=== PATIENT | female | born 1960 | race African-American/Black ===

== ENCOUNTER 2016-11-28 11:45 | Emergency (ER) | payer OTHER ==
[~2016-11-28] VITALS: Ht 160 cm; Wt 106.0 kg
[~2016-11-28 11:45] MED LIST: ALL DAY ALLERGY10 MG PO; AUGMENTIN875 MG PO; AZITHROMYCIN250 MG PO; BENADRYL25 MG PO; BENTYL10 MG PO; BENTYL20 MG PO; BUTALB-APAP-CA1 EAC1 PO; CELEXA10 MG PO; CELEXA20 MG PO; Ecotrin PO; FLONASE16 G1 BOTH NARES; FOSINOPRIL SODI20 MG PO; GENTLELAX119 GM PO; HYDROCHLOROTHIA25 MG PO; HYDROCODON-ACE1 EAC5 PO; HYDROCODON-ACE1 EAC7 PO; HYDROCODON-ACE1 EAC8 PO; IMITREX100 MG PO; KEFLEX500 MG PO; METAMUCIL PACKE1 PKT PO; METFORMIN HCL500 M1 PO; METFORMIN HCL500 M4 PO; METHIMAZOLE10 MG PO; MONOPRIL20 MG PO; MUCUS ER600 MG PO; NAPROSYN500 MG PO; NEURONTIN100 MG PO; NORCO 5/3251 TABLET PO; OMEPRAZOLE20 MG PO; PEPCID40 MG PO; PRILOSEC20 MG PO; PRINIVIL20 MG PO; PYRIDIUM200 MG PO; REGLAN10 MG PO; ROBITUSSIN NIG118 ML PO; TESSALON PERLE100 MG PO; TORADOL10 MG PO; TRAMADOL HCL50 MG PO; TYLENOL WITH C1 EACH PO; VALIUM2 MG PO; VENTOLIN HFA18 GM IH; VICODIN; VICODIN,LORT1 TABLET PO; ZITHROMAX250 MG PO; ZOFRAN ODT4 MG PO; ZOFRAN4 MG PO; ZOFRAN8 MG PO
[2016-11-28] MEDS ORDERED: TESSALON PERLE100 MG PO (12:41)
[2016-11-28] MEDS ORDERED: MUCUS ER600 MG PO (12:41)
[2016-11-28] MEDS ORDERED: ROBITUSSIN NIG118 ML PO (12:41)
[2016-11-28] MEDS ORDERED: FLONASE16 G1 BOTH NARES (12:41)
[2016-11-28 12:48] VITALS: BP 164/99
== END 2016-11-28 13:01 | disposition home or self-care (01) ==
LOC: EME 11:45
DX: J06.9 Acute upper respiratory infection, unspecified (principal)
CPT/HCPCS: 99281; 99284

== ENCOUNTER 2017-01-21 13:46 | Day surgery (SDC) | payer OTHER ==
[~2017-01-21] VITALS: Ht 158.8 cm; Wt 106.6 kg
[~2017-01-21 13:46] MED LIST changes: +ANTIBOTIC PO; +GRALISE300 MG PO; +KENALOG,ARISTOC80 GM TP; +NEURONTIN300 MG PO; +NYSTATIN100000 UN1 TP; +SINEQUAN10 MG PO; +[UNRECOGNIZED DRUG - OTHER] PO
[2017-01-21 14:28] LABS: POINT-OF-CARE METER ID UU14174212
== END 2017-01-21 15:10 | disposition home or self-care (01) ==
LOC: PAIN 13:46
PROVIDERS: Anesthesiology Pain Medicine
DX: M47.16 Other spondylosis with myelopathy, lumbar region (principal); M51.06 Intervertebral disc disorders with myelopathy, lumbar region; M79.7 Fibromyalgia; M17.10 Unilateral primary osteoarthritis, unspecified knee; E11.40 Type 2 diabetes mellitus with diabetic neuropathy, unspecified; I10 Essential (primary) hypertension; F32.9 Major depressive disorder, single episode, unspecified; G47.33 Obstructive sleep apnea (adult) (pediatric); E03.9 Hypothyroidism, unspecified; K21.9 Gastro-esophageal reflux disease without esophagitis; N26.1 Atrophy of kidney (terminal); E66.01 Morbid (severe) obesity due to excess calories; Z68.41 Body mass index [BMI] 40.0-44.9, adult; Z87.891 Personal history of nicotine dependence; F10.21 Alcohol dependence, in remission; Z79.891 Long term (current) use of opiate analgesic; Z79.84 Long term (current) use of oral hypoglycemic drugs; Z79.899 Other long term (current) drug therapy
CPT/HCPCS: 82948; J1030; J2250; J3010; S0020

== ENCOUNTER 2017-02-15 11:40 | Emergency (ER) | payer OTHER ==
[~2017-02-15] VITALS: Ht 157.5 cm; Wt 107.3 kg
[2017-02-15] MEDS ORDERED: COLCHICINE0.6 M1 PO (12:17)
[2017-02-15 12:34] VITALS: BP 136/100
== END 2017-02-15 12:36 | disposition home or self-care (01) ==
LOC: EME 11:40
DX: M10.9 Gout, unspecified (principal); Z91.018 Allergy to other foods; Z88.6 Allergy status to analgesic agent; Z88.5 Allergy status to narcotic agent; Z91.012 Allergy to eggs; Z87.891 Personal history of nicotine dependence; Z82.69 Family history of other diseases of the musculoskeletal system and connective tissue; I10 Essential (primary) hypertension; E11.9 Type 2 diabetes mellitus without complications; Z79.84 Long term (current) use of oral hypoglycemic drugs
CPT/HCPCS: 99281; 99283

== ENCOUNTER 2017-02-28 10:47 | Emergency (ER) | payer OTHER ==
[~2017-02-28] VITALS: Ht 157.5 cm; Wt 106.2 kg
[~2017-02-28 10:47] MED LIST changes: +COLCHICINE0.6 M1 PO
[2017-02-28 11:41] LABS: ADD MIUA? YES; BILIRUBIN NEGATIVE; BLOOD NEGATIVE; COLOR YELLOW ((YELLOW)); GLUCOSE (STRIP) 50; KETONES NEGATIVE; LEUKOCYTES SMALL; NITRITE NEGATIVE; PROTEIN (STRIP) 100; SPECIFIC GRAVITY 1.023 (1.000-1.030); UROBILINOGEN 0.2 MG/DL (0.2-1.0)
[2017-02-28 11:43] LABS: BACTERIA RARE /HPF; EPITHELIAL CELLS 1+ /HPF; MUCUS TRACE /LPF; RED BLOOD CELLS 0-5 /HPF (0-5); WHITE BLOOD CELLS 0-5 /HPF (0-5)
[2017-02-28 11:52] LABS: EOSINOPHIL (%) 0.6 % (0-5); HEMATOCRIT 42.1 % (36.0-46.0); IMMATURE GRANULOCYTE (%) 0.2 % (0.0-0.7); INSTRUMENT ABS NEUTROPHIL CT 1.4 K/uL; LYMPHOCYTE COUNT 2.8 K/uL (1.0-2.8); MCH 28.2 PG (29.0-34.0); MCHC 32.3 G/DL (30.0-36.0); MCV 87.3 FL (83-99); MEAN PLAT.VOLUME 11.7 uM^3 (9.5-12.4); MONOCYTE (%) 8.2 % (3-12); MONOCYTE COUNT 0.4 K/uL (0-0.8); NEUTROPHIL COUNT 1.4 K/uL (1.8-6.4); PLATELET COUNT 225 K/uL (156-360); RBC DIS.WIDTH-CV 14.9 % (11.8-14.6); RBC DIS.WIDTH-SD 47.7 % (39-53); RED BLOOD COUNT 4.82 M/uL (3.80-5.20); WHITE BLOOD COUNT 4.6 K/uL (4.1-10.2)
[2017-02-28 12:06] LABS: CHLORIDE 103 mEq/L (99-109); POTASSIUM 3.7 mEq/L (3.7-5.4); SODIUM 140 mEq/L (136-147)
[2017-02-28 12:08] LABS: GLUCOSE 95 mg/dL (70-99)
[2017-02-28 12:09] LABS: ANION GAP 10 MEQ/L (2-14)
[2017-02-28 12:10] LABS: TOTAL BILIRUBIN 0.4 mg/dL (0.0-1.0)
[2017-02-28 12:12] LABS: ALKALINE PHOSPHATASE 72 IU/L (3-129); GFR ESTIMATE (CALCULATED) > 59 mL/min/
[2017-02-28 12:13] LABS: UREA NITROGEN (BUN) 15 mg/dL (9-23)
[2017-02-28] MEDS ORDERED: NORCO 5/3251 TABLET PO (14:01)
[2017-02-28 14:11] VITALS: BP 130/86
== END 2017-02-28 14:14 | disposition home or self-care (01) ==
LOC: EME 10:47
PROVIDERS: Physician Assistant
DX: R10.30 Lower abdominal pain, unspecified (principal); R11.0 Nausea; N89.8 Other specified noninflammatory disorders of vagina; R19.7 Diarrhea, unspecified; I10 Essential (primary) hypertension; E11.9 Type 2 diabetes mellitus without complications; Z79.84 Long term (current) use of oral hypoglycemic drugs; Z87.442 Personal history of urinary calculi; Z87.891 Personal history of nicotine dependence
CPT/HCPCS: 74176; 80053; 81003; 85025; 99281; 99284; J2270

== ENCOUNTER → 2017-03-20 | Outpatient (CLI) | payer OTHER | END | disposition home or self-care (01) | LOC: NUC 03-13 11:00 | DX: R10.814 Left lower quadrant abdominal tenderness (principal); N26.1 Atrophy of kidney (terminal); N28.89 Other specified disorders of kidney and ureter | CPT/HCPCS: 78709; A9562 ==

== ENCOUNTER → 2017-04-04 | Day surgery (SDC) | payer OTHER ==
[~2017-04-04] VITALS: Ht 160 cm; Wt 107.5 kg
[2017-04-04 10:30] LABS: POINT-OF-CARE METER ID UU13113696
[2017-04-04 12:25] LABS: BASE EXCESS 2.6 mEq/L (-3 to +3); BICARBONATE 29.7 mEq/L (22-26); CARBOXY HGB 2.6 % (0-5); METHEMOGLOBIN 1.8 % (0-1.5); PCO2 55 mm Hg (35-45); pH 7.34 (7.35-7.45)
[2017-04-04 12:27] LABS: PO2 34 mm Hg (80-100); SITE PA
[2017-04-04 12:28] LABS: COMMENTS - BLOOD GASES COLLECTED BY CATHLAB
[2017-04-04 12:28] LABS: BASE EXCESS 2.2 mEq/L (-3 to +3); BICARBONATE 29.5 mEq/L (22-26); CARBOXY HGB 2.7 % (0-5); METHEMOGLOBIN 1.7 % (0-1.5); PCO2 56 mm Hg (35-45); pH 7.33 (7.35-7.45)
[2017-04-04 12:29] LABS: COMMENTS - BLOOD GASES COLLECTED BY CATHLAB; PO2 35 mm Hg (80-100); SITE RA
[2017-04-04 13:22] LABS: POINT-OF-CARE METER ID UU13113819
== END | disposition home or self-care (01) ==
LOC: CATH 09:16
PROVIDERS: Internal Medicine Cardiovascular Disease
DX: I27.2 Other secondary pulmonary hypertension (principal); R06.09 Other forms of dyspnea; E11.9 Type 2 diabetes mellitus without complications; G47.30 Sleep apnea, unspecified; I10 Essential (primary) hypertension; E66.01 Morbid (severe) obesity due to excess calories; Z87.891 Personal history of nicotine dependence
CPT/HCPCS: 36600; 82803; 82948; C1769; C1894; J1815; J2250; J3010

== ENCOUNTER 2017-04-05 19:53 | Emergency (ER) | payer OTHER ==
[~2017-04-05] VITALS: Ht 160 cm; Wt 106.1 kg
[2017-04-05 20:42] LABS: POINT-OF-CARE METER ID UU14100415
[2017-04-05 20:56] LABS: HEMATOCRIT 41.5 % (36.0-46.0); MCH 28.5 PG (29.0-34.0); MCV 86.5 FL (83-99); RBC DIS.WIDTH-SD 47.7 % (39-53)
[2017-04-05 21:05] LABS: CHLORIDE 105 mEq/L (99-109); POTASSIUM 4.1 mEq/L (3.7-5.4); SODIUM 140 mEq/L (136-147)
[2017-04-05 21:07] LABS: GLUCOSE 117 mg/dL (70-99)
[2017-04-05 21:08] LABS: ANION GAP 13 MEQ/L (2-14)
[2017-04-05 21:09] LABS: ADD MIUA? YES; BILIRUBIN NEGATIVE; BLOOD SMALL; COLOR YELLOW ((YELLOW)); GLUCOSE (STRIP) NEGATIVE; KETONES NEGATIVE; LEUKOCYTES MODERATE; NITRITE NEGATIVE; PROTEIN (STRIP) 30; SPECIFIC GRAVITY 1.016 (1.000-1.030); UROBILINOGEN 0.2 MG/DL (0.2-1.0)
[2017-04-05 21:09] LABS: TOTAL BILIRUBIN 0.2 mg/dL (0.0-1.0)
[2017-04-05 21:10] LABS: ALKALINE PHOSPHATASE 82 IU/L (3-129)
[2017-04-05 21:11] LABS: GFR ESTIMATE (CALCULATED) > 59 mL/min/
[2017-04-05 21:12] LABS: UREA NITROGEN (BUN) 14 mg/dL (9-23)
[2017-04-05 21:15] LABS: BACTERIA 1+ /HPF; EPITHELIAL CELLS 2+ /HPF; MUCUS TRACE /LPF; RED BLOOD CELLS 0-5 /HPF (0-5); UCUL ADDED? NO
[2017-04-05 21:20] LABS: QUANTITATIVE HCG < 4.0 MIU/ML
[2017-04-05 21:41] LABS: PLAT.SUFFICIENCY ADEQUATE; PLATELET COUNT 222 K/uL (156-360)
[2017-04-05] MEDS ORDERED: KEFLEX500 MG PO (21:44)
[2017-04-05 21:58] VITALS: BP 146/97
== END 2017-04-05 21:59 | disposition home or self-care (01) ==
LOC: EME 19:53
PROVIDERS: Physician Assistant
DX: N39.0 Urinary tract infection, site not specified (principal); R10.30 Lower abdominal pain, unspecified; Z98.890 Other specified postprocedural states; K57.30 Diverticulosis of large intestine without perforation or abscess without bleeding; I12.9 Hypertensive chronic kidney disease with stage 1 through stage 4 chronic kidney disease, or unspecified chronic kidney disease; E11.22 Type 2 diabetes mellitus with diabetic chronic kidney disease; N18.9 Chronic kidney disease, unspecified; Z79.84 Long term (current) use of oral hypoglycemic drugs; E03.9 Hypothyroidism, unspecified; Z87.442 Personal history of urinary calculi; Z87.891 Personal history of nicotine dependence
CPT/HCPCS: 74176; 80053; 81003; 82948; 84702; 85027; 99281; 99282

== ENCOUNTER 2017-06-09 15:55 | Emergency (ER) | payer OTHER ==
[~2017-06-09] VITALS: Ht 160 cm; Wt 105.7 kg
[2017-06-09] MEDS ORDERED: TORADOL10 MG PO (18:16)
[2017-06-09 18:50] VITALS: BP 156/95
== END 2017-06-09 18:56 | disposition home or self-care (01) ==
LOC: EME 15:55
DX: S06.0X0A Concussion without loss of consciousness, initial encounter (principal); W22.09XA Striking against other stationary object, initial encounter; I12.9 Hypertensive chronic kidney disease with stage 1 through stage 4 chronic kidney disease, or unspecified chronic kidney disease; N18.9 Chronic kidney disease, unspecified; Z79.84 Long term (current) use of oral hypoglycemic drugs; Z87.891 Personal history of nicotine dependence
CPT/HCPCS: 99281; 99283

== ENCOUNTER 2017-06-30 10:47 | Day surgery (SDC) | payer OTHER ==
[2017-06-30 11:52] LABS: POINT-OF-CARE METER ID UU14174212; POINT-OF-CARE USER ID AHSRSCSLC11
== END 2017-06-30 12:45 | disposition home or self-care (01) ==
LOC: PAIN 10:47 → SDC 11:15 → PAIN 11:15
PROVIDERS: Anesthesiology Pain Medicine
DX: M16.0 Bilateral primary osteoarthritis of hip (principal); M79.7 Fibromyalgia; M47.16 Other spondylosis with myelopathy, lumbar region; E11.42 Type 2 diabetes mellitus with diabetic polyneuropathy; K21.9 Gastro-esophageal reflux disease without esophagitis; E05.20 Thyrotoxicosis with toxic multinodular goiter without thyrotoxic crisis or storm; M10.9 Gout, unspecified; G40.909 Epilepsy, unspecified, not intractable, without status epilepticus; I10 Essential (primary) hypertension; E05.90 Thyrotoxicosis, unspecified without thyrotoxic crisis or storm; E66.01 Morbid (severe) obesity due to excess calories; G47.33 Obstructive sleep apnea (adult) (pediatric); Z87.891 Personal history of nicotine dependence; M47.14 Other spondylosis with myelopathy, thoracic region; Z79.891 Long term (current) use of opiate analgesic; Z79.84 Long term (current) use of oral hypoglycemic drugs
CPT/HCPCS: 82948; J1030; J2250; J3010; S0020